=== PATIENT | female | born 1985 | race Caucasian/White ===

== ENCOUNTER 2018-07-27 10:52 | Outpatient (CLI) | payer BC, SELFPAY ==
[2018-07-27 13:09] LABS: TSH (W/Ref FT4) 2.66 uIU/mL (0.358-3.74)
== END 2018-07-27 11:12 ==
LOC: LBO 10:52 → LOS 11:23
PROVIDERS: PCP Family Medicine; Visit Provider Family Medicine
DX: E03.9 Hypothyroidism, unspecified (principal)
CPT/HCPCS: 36415; 84443

== ENCOUNTER 2018-09-01 10:14 | Outpatient (REF) | payer BC, SELFPAY ==
--- NOTE | 2018-09-01 08:45 | PAPFT_PTH ---
PATIENT: Sheyla Haynes LOC: [facility] U#:[id number] AGE/SX: 33/F ROOM: RE09/01/[address]: Carito Hartmann MD, DC : 1985 BED: DIS: 09/01/2018 SPEC #: [id number] RECD: 09/01/18 13:06 STATUS: ERIC REQ #: [id number] DALI: 09/01/18 08:[address]: Carito Hartmann DEPT: [facility] Cytology RECD BY: Lynne Mcdowell Tissues: 1 - CX/ENDOCX FOR PAP SMEARS Procedures: PAP THIN PREP/UVM Screening HPV DNA PROBE Comments: [id number] (CHLAMYDIA/GC)
[2018-09-02 18:06] LABS: Chlamydia Result Negative; GC Result Negative; Specimen Description SEE COMMENTS
== END 2018-09-01 10:34 ==
LOC: LBN 10:14
PROVIDERS: PCP Family Medicine; Visit Provider Family Medicine
DX: Z11.3 Encounter for screening for infections with a predominantly sexual mode of transmission (principal); Z12.4 Encounter for screening for malignant neoplasm of cervix; Z11.51 Encounter for screening for human papillomavirus (HPV)
CPT/HCPCS: 87491; 87591; 88142; 87624

== ENCOUNTER 2018-09-25 01:22 | Outpatient (CLI) | payer BC, SELFPAY ==
--- NOTE | 2018-09-25 12:30 | DI.US_ITS ---
SYMPTOMS/DIAGNOSIS: MASS RT LATERAL NECK, R22.1, LYMPH NODE ENLARGEMENT, R59.9 , HPV, HYPOTHYROIDISM, E03.9 THYROID ULTRASOUND: Routine examination was performed. The right lobe measures 3.8 x 0.9 x 1.4 cm. The left lobe measures 3.9 x 1 x 1.3 cm. The isthmus is within normal limits. There is no evidence of a thyroid mass. There is normal and symmetric blood flow to the thyroid gland. IMPRESSION: Negative thyroid ultrasound. ULTRASOUND OF THE NECK: Sonographic evaluation of the right neck was performed. There are bilateral hypoechoic nodules in the left. The largest measures 1.5 x 0.7 1.2 cm and is in the right mid neck. This appears to correspond to the palpable abnormality. Several of the nodules show a hyperechoic eccentric vascular area. These findings are consistent with benign appearing lymph node. No suspicious masses are seen in the neck. IMPRESSION: Bilateral cervical lymph nodes. The largest measures 1.5 x 0.7 x 1.2 cm and appears to correspond sonographically with the palpable abnormality. If there is continued concern, a CT scan of the neck with contrast may be considered for further evaluation.
== END 2018-09-25 01:42 ==
PROVIDERS: PCP Family Medicine; Visit Provider Otolaryngology Otolaryngology/Facial Plastic Surgery
DX: R22.1 Localized swelling, mass and lump, neck (principal); R59.0 Localized enlarged lymph nodes; E03.9 Hypothyroidism, unspecified
CPT/HCPCS: 76536

== ENCOUNTER 2018-10-22 01:31 | Outpatient (CLI) | payer BC, SELFPAY ==
--- NOTE | 2018-10-22 08:56 | DI.CT_ITS ---
SYMPTOM/DIAGNOSIS: NECK MASS, R22.1, LYMPH NODE ENLARGEMENT, R59.9, HPV, HYPOTHYROIDISM, R03.[address]: Comparison is made with neck ultrasound dated 09/25/18. Post contrast exam was performed. A BB marker was placed over the area of the palpable abnormality which overlies the lower sternocleidomastoid muscle. No abnormality is seen beneath the area marked. There are small lymph nodes seen in the posterior cervical chain, the largest measuring 11 mm. in greatest dimension. Other scattered smaller lymph nodes are seen. No pathologically enlarged lymph nodes are identified. The parotid, submandibular and thyroid glands are unremarkable. The visualized portions of the upper lobes appear clear. No vascular abnormalities are identified. There are mild degenerative disc changes at C 6-7. The orbits, sinuses and mastoid air cells are unremarkable. IMPRESSION: Small bilateral cervical lymph nodes, the largest in the lower right posterior cervical chain measuring 11 mm.
[2018-10-22] MEDS: Omnipaque 350 MG/ML 100 ML BTL IV (08:58)
== END 2018-10-22 01:51 ==
PROVIDERS: PCP Family Medicine; Visit Provider Otolaryngology Otolaryngology/Facial Plastic Surgery
DX: R22.1 Localized swelling, mass and lump, neck (principal); R59.0 Localized enlarged lymph nodes; E03.9 Hypothyroidism, unspecified
CPT/HCPCS: 70491; J3490

== ENCOUNTER 2018-10-26 07:19 | Day surgery (SDC) | payer BC, SELFPAY ==
[2018-10-26] VITALS (9 sets, daily range): BP systolic 89–138; BP diastolic 43–82; PULSE 59–80; RESP 15–22; TEMP 36.5–37.7; O2SAT 96–100
[2018-10-26] MEDS: Lactated Ringers 1,000 ML 80 ML IV (08:25)
--- NOTE | 2018-10-26 08:56 | PDOC.DSDIS_ITS ---
Discharge Plan Disposition Patient Disposition: HOME Condition: Good Discharge Details Reason For Visit: OR, MSDL supraglottic mass, HPV Attending Provider: Ernesto Roy Primary Care Provider: Carito Hartmann Home Meds and New Rx's Prescriptions: No Action norethindrone-ethin estradiol [Alyacen (28)] 1-35 mg-mcg tablet 1 tab PO DAILY Qty: 84 RF: 4 norethindrone-e.estradiol-iron [Junel FE 12/06 (28)] 1 mg-20 mcg (21)/75 mg (7 ) tablet 1 tab PO HS RF: 0 levothyroxine 125 mcg capsule 125 mcg PO DAILY RF: 0 multivitamin Capsule 1 cap PO QAM RF: 0 ibuprofen 600 mg Tablet 600 mg PO PRNRF: 0 Discharge Instructions Additional Instructions: see sheet Activity:: Activity as Tolerated Diet:: As Tolerated Discharge Orders Discharge Orders: Discharge Order (Routine); Ordered 10/26/18 Ordered By: Ernesto Roy
--- NOTE | 2018-10-26 09:46 | LAR_PTH ---
PATIENT: Sheyla Haynes LOC: [facility] U#:[id number] AGE/SX: 33/F ROOM: RE10/26/[address]: Ernesto Roy DO : 1985 BED: DIS: 10/26/2018 SPEC #: [id number] RECD: 10/26/18 12:24 STATUS: ERIC REQ #: [id number] DALI: 10/26/18 09:[address]: Ernesto Roy DEPT: Surgical Specimen RECD BY: Lynne Mcdowell ENTERED: 10/26/18 12:27 SP TYPE: ROCK LEAVITT DR: Carito Hartmann MD, DC Tissues: 1 - LARYNX BIOPSY Procedures: GROSS AND MICRO LEVEL 4 Comments: [id number]
--- NOTE | 2018-10-26 11:48 | ROE_ITS ---
DATE OF PROCEDURE: October 26, 2018 PREOPERATIVE DIAGNOSIS: 1. Midline supraglottic mass. 2. History of HPV. 3. History of neck lymphadenopathy bilaterally. POSTOPERATIVE DIAGNOSIS: Same. PROCEDURE: Microsuspension direct laryngoscopy with excision of mass midline supraglottis within the vallecula, indicative of papillomatous-type lesion. SURGEON: Ernesto Roy D.O. ANESTHESIA: General. ESTIMATED BLOOD LOSS: Less than 1 cc COMPLICATIONS: None. CONDITION: Patient tolerated the procedure well. SPECIMENS: Vallecular supraglottic midline papillomatous-type lesion sent to pathology for analysis. INDICATIONS FOR PROCEDURE: This is a pleasant 33-year-old female who presents with a history of HPV. She presents with intermittent neck lymphadenopathy, undergone FNA ultrasound of the neck. Decisio n was made forth to proceed with direct laryngoscopy and mass excision with subtyping for HPV if appr opriate. HPV poses a significant oropharyngeal carcinoma risk. We had these discussions preoperativ valerie. She wishes to proceed. Consent was placed in the chart. PROCEDURE: The patient was brought back to the operative suite in stable condition, placed supine on the operating table and intubated in a normal fashion. The table was rotated 90 degrees. A dental guard was used to cover and protect the upper dentition. The Dedo laryngoscope was placed into the r ight oral commissure to the level of the true vocal cords, which were normal in nature. The remainin g portion of the DL was normal. The epiglottis was normal. It was suspended then in the vallecula t o identify the papillomatous-type lesions. The operative microscope was used to visualize the surgic al field. We used a left-cutting scissors and a straight grasper to excise the papillomatous-type le sions. Hemostasis was controlled with topical epinephrine 1:1000. The remaining portion of the leslie ngoscopy was within normal limits. There were no complications. She was stable to PACU.
== END 2018-10-26 12:10 | disposition home or self-care (01) ==
PROVIDERS: PCP Family Medicine; Visit Provider Otolaryngology Otolaryngology/Facial Plastic Surgery
PROC: 0CJS8ZZ Inspection of Larynx, Via Natural or Artificial Opening Endoscopic (ICD-10-PCS; CPT 31541; principal; 2018-10-26 08:30)
DX: D14.1 Benign neoplasm of larynx (principal); Z87.42 Personal history of other diseases of the female genital tract; R59.0 Localized enlarged lymph nodes
CPT/HCPCS: 31541; 81025; 88305; J0131; J0171; J0690; J1100; J2250; J2405; J3010

== ENCOUNTER 2019-07-02 18:58 | Outpatient (REF) | payer BC, SELFPAY | END 2019-07-02 19:18 | LOC: LBN 18:58 | PROVIDERS: PCP Family Medicine; Visit Provider Nurse Practitioner | DX: N39.0 Urinary tract infection, site not specified (principal) | CPT/HCPCS: 87086 ==

== ENCOUNTER 2019-07-06 17:18 | Outpatient (REF) | payer BC, SELFPAY | END 2019-07-06 17:38 | LOC: LBN 17:18 | PROVIDERS: PCP Family Medicine; Visit Provider Family Medicine | DX: N76.0 Acute vaginitis (principal) | CPT/HCPCS: 87480; 87510; 87660 ==

== ENCOUNTER 2019-09-02 08:47 | Outpatient (CLI) | payer BC, SELFPAY ==
[2019-09-03 10:36] LABS: Hepatitis C Ab w Rflx HCV PCR Negative (NEGAT)
[2019-09-03 10:38] LABS: HIV-1/2 Ag & Ab Screen Negative (NEGAT)
== END 2019-09-02 09:07 ==
PROVIDERS: PCP Family Medicine; Visit Provider Family Medicine
DX: Z00.00 Encounter for general adult medical examination without abnormal findings (principal); E03.9 Hypothyroidism, unspecified; Z11.4 Encounter for screening for human immunodeficiency virus [HIV]; Z11.59 Encounter for screening for other viral diseases
CPT/HCPCS: 36415; 86803; 87389; 84443

== ENCOUNTER 2019-09-02 08:58 | Outpatient (REF) | payer BC, SELFPAY ==
--- NOTE | 2019-09-02 08:30 | PAPFT_PTH ---
PATIENT: Sheyla Haynes LOC: [facility] U#:[id number] AGE/SX: 34/F ROOM: RE09/02/[address]: Carito Hartmann MD, DC : 1985 BED: DIS: 09/02/2019 SPEC #: [id number] RECD: 09/02/19 12:45 STATUS: ERIC REQ #: [id number] DALI: 09/02/19 08:[address]: Carito Hartmann DEPT: [facility] Cytology RECD BY: Lynne Mcdowell Tissues: 1 - CX/ENDOCX FOR PAP SMEARS Procedures: PAP THIN PREP/UVM Screening HPV DNA PROBE Comments: [id number] (CHLAMYDIA/GC)
[2019-09-03 15:45] LABS: Chlamydia Result Negative; GC Result Negative; Specimen Description SEE COMMENTS
== END 2019-09-02 09:18 ==
LOC: LBN 08:58
PROVIDERS: PCP Family Medicine; Visit Provider Family Medicine
DX: Z12.4 Encounter for screening for malignant neoplasm of cervix (principal); Z11.51 Encounter for screening for human papillomavirus (HPV); Z11.3 Encounter for screening for infections with a predominantly sexual mode of transmission
CPT/HCPCS: 87491; 87591; 88142; 87624

== ENCOUNTER 2019-10-18 12:51 | Outpatient (REF) | payer BC, SELFPAY ==
--- NOTE | 2019-10-18 11:07 | SKI_PTH ---
PATIENT: Sheyla Haynes LOC: [facility] U#:[id number] AGE/SX: 34/F ROOM: RE10/18/[address]: Ernesto Roy DO : 1985 BED: DIS: 10/18/2019 SPEC #: [id number] RECD: 10/18/19 18:31 STATUS: ERIC REQ #: [id number] DALI: 10/18/19 11:[address]: Ernesto Roy DEPT: Surgical Specimen RECD BY: Lynne Mcdowell ENTERED: 10/18/19 18:31 SP TYPE: SKI OT DR: Carito Hartmann MD, DC Tissues: 1 - SKIN BIOPSY(SHAVE/PUNCH) Procedures: SKIN LEVEL 4 Comments: [id number]
== END 2019-10-18 13:11 ==
LOC: LBN 12:51
PROVIDERS: PCP Family Medicine; Visit Provider Otolaryngology Otolaryngology/Facial Plastic Surgery
DX: L98.8 Other specified disorders of the skin and subcutaneous tissue (principal)
CPT/HCPCS: 88305

== ENCOUNTER 2020-05-31 09:59 | Outpatient (CLI) | payer BC, SELFPAY ==
--- NOTE | 2020-05-31 09:30 | DI.RAD_ITS ---
EXAM: XR FOOT LT COMPLETE CLINICAL HISTORY: left foot pain TECHNIQUE: COMPARISON: No exams were available for comparison FINDINGS: Three views were obtained. Bony alignment appears within normal limits. There is an osteophyte at t he site of attachment of the plantar fascia on the calcaneus. No other bony or soft tissue abnormali ty seen. IMPRESSION:
--- NOTE | 2020-05-31 09:42 | DI.RAD_ITS ---
EXAM: XR KNEE RT 3V AP,LAT,SWETHA CLINICAL HISTORY: right knee pain TECHNIQUE: COMPARISON: No exams were available for comparison FINDINGS: Three views were obtained. No bony or soft tissue abnormality seen. IMPRESSION: Negative examination of the knee.
== END 2020-05-31 10:19 ==
PROVIDERS: PCP Family Medicine; Referring Provider Family Medicine; Visit Provider Student in an Organized Health Care Education/Training Program
DX: M25.561 Pain in right knee (principal); M79.672 Pain in left foot; M25.772 Osteophyte, left ankle
CPT/HCPCS: 73562; 73630

== ENCOUNTER 2020-07-19 21:27 | Outpatient (REF) | payer BC, SELFPAY ==
[2020-07-21 15:58] LABS: Chlamydia Result Negative (Negative); GC Result Negative (Negative)
== END 2020-07-19 21:47 ==
LOC: LBN 21:27
PROVIDERS: PCP Family Medicine; Visit Provider Obstetrics & Gynecology
DX: N76.0 Acute vaginitis (principal)
CPT/HCPCS: 87491; 87591; 87480; 87510; 87660

== ENCOUNTER 2020-09-12 11:20 | Outpatient (REF) | payer BC, SELFPAY | END 2020-09-12 11:40 | LOC: LBN 11:20 | PROVIDERS: PCP Family Medicine; Visit Provider Family Medicine | DX: N76.0 Acute vaginitis (principal) | CPT/HCPCS: 87480; 87510; 87660 ==

== ENCOUNTER 2020-10-13 03:15 | Outpatient (CLI) | payer BC, SELFPAY ==
[2020-10-15 22:32] LABS: Patient Race White; SARS-CoV-2 RNA Undetected (Undetected); SARS-CoV-2 Specimen Source Nasal
== END 2020-10-13 03:35 ==
PROVIDERS: PCP Family Medicine; Visit Provider Family Medicine
DX: R05 Cough (principal)
CPT/HCPCS: U0003

== ENCOUNTER 2021-01-19 03:43 | Outpatient (CLI) | payer OTHER, SELFPAY ==
[2021-01-20 14:36] LABS: COVID-19 RT-PCR UVMMC Result Positive (Negative)
== END 2021-01-19 03:44 | disposition home or self-care (01) ==
LOC: LBO 03:43
PROVIDERS: PCP Family Medicine; Visit Provider Family Medicine
DX: Z20.822 Contact with and (suspected) exposure to COVID-19 (principal)
CPT/HCPCS: U0003

== ENCOUNTER 2021-10-12 00:30 | Outpatient (CLI) | payer OTHER, SELFPAY ==
--- NOTE | 2021-10-12 13:09 | DI.RAD_ITS ---
Exam(s) XR KNEE RT 3V AP,LAT,SWETHA EXAM: XR KNEE RT 3V AP,LAT,WSETHA CLINICAL HISTORY: r knee pain,m25.561. TECHNIQUE: 2D digital imaging was performed. COMPARISON: CR XR KNEE RT 3V AP,LAT,SWETHA from 05/31/2020 FINDINGS: BONES: No acute fracture is present. No bony destructive lesion is seen. Minimal enthesophyte superi or pole of the patella. JOINTS: Joint spaces are well maintained.. No joint effusion is seen. SOFT TISSUE: Normal. IMPRESSION: Minimal degenerative changes. DATA REPOSITORY: RADIATION DOSE DELIVERED:
== END 2021-10-12 00:50 ==
PROVIDERS: PCP Family Medicine; Visit Provider Family Medicine
DX: M25.561 Pain in right knee (principal)
CPT/HCPCS: 73562

== ENCOUNTER 2021-10-26 01:25 | Outpatient (CLI) | payer OTHER, SELFPAY ==
[2021-10-26 15:46] LABS: HCT 43.9 % (36.0-46.0); HGB 14.2 g/dL (11.2-15.7); MCH 27.6 pg (27.0-33.0); MCHC 32.3 % (32.0-36.0); MCV 85.4 fL (80-95); MPV 9.9 fL (8.0-11.0); Platelet Count 318 10^3/uL (130-400); RBC 5.14 10^6/uL (3.93-5.22); RDW 11.8 % (11.7-14.6); RDW-SD 36.5 fL; WBC 10.97 10^3/uL (4.4-10.8)
[2021-10-26 16:47] LABS: TSH (W/Ref FT4) 0.54 uIU/mL (0.36-3.74)
[2021-10-26 16:57] LABS: Iron 51 ug/dL (50-170)
== END 2021-10-26 01:26 | disposition home or self-care (01) ==
LOC: LBO 01:25
PROVIDERS: PCP Family Medicine; Visit Provider Family Medicine
DX: E03.9 Hypothyroidism, unspecified (principal); N93.8 Other specified abnormal uterine and vaginal bleeding
CPT/HCPCS: 36415; 85027; 83540; 84443

== ENCOUNTER 2022-01-03 00:55 | Outpatient (CLI) | payer OTHER, SELFPAY ==
--- NOTE | 2022-01-03 | DI.MRI_ITS ---
Exam(s) MR LOWER JOINT RT WO EXAM: MR LOWER JOINT RT WO CLINICAL HISTORY: CHRONIC RT KNEE PAIN M25.561 G89.29. TECHNIQUE: Multiplanar multisequence MRI was performed. COMPARISON: CR XR KNEE RT 3V AP,LAT,SWETHA from 10/12/2021 FINDINGS: BONES: There is no fracture or contusion pattern. JOINTS: Articular cartilage is unremarkable. No effusion is present. TENDONS: Extensor mechanism: Unremarkable. Medial retinaculum: Unremarkable. Lateral retinaculum: Unremarkable. Popliteus: Unremarkable. MUSCLES: Unremarkable. MENISCI: The medial meniscus is unremarkable. The lateral meniscus is unremarkable. SOFT TISSUES: There is mild edema in the soft tissues medial to the medial femoral condyle. No focal fluid collection is seen. LIGAMENTS: Anterior Cruciate: Unremarkable. Posterior Cruciate: Unremarkable. Medial Collateral:Unremarkable. Lateral Collateral: Unremarkable. OTHER: IMPRESSION: No evidence of a meniscal or ligament tear. No acute abnormality. DATA REPOSITORY:
== END 2022-01-03 01:15 ==
PROVIDERS: PCP Family Medicine; Visit Provider Student in an Organized Health Care Education/Training Program
DX: M25.561 Pain in right knee (principal); G89.29 Other chronic pain; R60.0 Localized edema
CPT/HCPCS: 73721

== ENCOUNTER 2022-02-08 03:18 | Outpatient (CLI) | payer OTHER, SELFPAY ==
[2022-02-08 11:44] LABS: Source Nasal/Nares
[2022-02-08 14:14] LABS: COVID-19 PCR Negative (Negative)
== END 2022-02-08 03:19 | disposition home or self-care (01) ==
PROVIDERS: PCP Family Medicine; Visit Provider Student in an Organized Health Care Education/Training Program
DX: Z20.822 Contact with and (suspected) exposure to COVID-19 (principal)
CPT/HCPCS: 87635

== ENCOUNTER 2022-09-25 03:37 | Outpatient (CLI) | payer OTHER, SELFPAY ==
[2022-09-25 08:18] LABS: ALT 19 U/L (14-59); AST 16 U/L (15-37); Albumin 3.8 g/dL (3.4-5.0); Alkaline Phosphatase 68 U/L (46-116); Anion Gap 6.7 mmol/L (3-11); BUN 15 mg/dL (7-18); Bilirubin, Total 0.4 mg/dL (0.2-1.0); CO2 28.3 mmol/L (21.0-32.0); CREATININE 0.9 mg/dL (0.55-1.02); Calcium 9.4 mg/dL (8.5-10.1); Chloride 104 mmol/L (98-107); Glucose 85 mg/dL (74-106); Potassium 4.2 mmol/L (3.5-5.1); Sodium 139 mmol/L (136-145); TSH (W/Ref FT4) 1.63 uIU/mL (0.36-3.74); Total Protein 7.6 g/dL (6.4-8.2)
== END 2022-09-25 03:38 | disposition home or self-care (01) ==
PROVIDERS: PCP Family Medicine; Visit Provider Family Medicine
DX: E03.9 Hypothyroidism, unspecified (principal); R74.01 Elevation of levels of liver transaminase levels
CPT/HCPCS: 36415; 80053; 84443

== ENCOUNTER 2022-10-14 12:26 | Outpatient (REF) | payer OTHER, SELFPAY ==
--- NOTE | 2022-10-14 10:25 | PAPFT_PTH ---
PATIENT: Sheyla Haynes LOC: [facility]#:[id number] AGE/SX: 37/F ROOM: RE10/14/[address]: Carito Hartmann MD, DC : 1985 BED: DIS: 10/14/2022 SPEC #: [id number] RECD: 10/15/22 12:16 STATUS: ERIC REAntonio #: [id number] DALI: 10/14/22 10:[address]: Carito Hartmann DEPT: [facility] Cytology RECD BY: Aria Somers Tissues: 1 - CX/ENDOCX FOR PAP SMEARS Procedures: PAP THIN PREP/UVM Screening HPV DNA PROBE Comments: [id number] (CHLAMYDIA/GC)
[2022-10-16 15:01] LABS: Chlamydia Result Negative (Negative); GC Result Negative (Negative)
== END 2022-10-14 12:27 | disposition home or self-care (01) ==
LOC: LBN 12:26
PROVIDERS: PCP Family Medicine; Visit Provider Family Medicine
DX: Z11.3 Encounter for screening for infections with a predominantly sexual mode of transmission (principal); Z12.4 Encounter for screening for malignant neoplasm of cervix; Z11.51 Encounter for screening for human papillomavirus (HPV)
CPT/HCPCS: 87491; 87591; 88142; 87624

== ENCOUNTER 2023-02-14 11:29 | Outpatient (REF) | payer OTHER, SELFPAY | END 2023-02-14 11:30 | disposition home or self-care (01) | LOC: NCHCN 11:29 | PROVIDERS: PCP Family Medicine; Visit Provider Nurse Practitioner Family | DX: N76.0 Acute vaginitis (principal); J02.9 Acute pharyngitis, unspecified | CPT/HCPCS: 87070; 87480; 87510; 87660 ==

== ENCOUNTER 2023-03-28 17:29 | Outpatient (REF) | payer OTHER, SELFPAY ==
[2023-03-29 20:42] LABS: Chlamydia Result Negative (Negative); GC Result Negative (Negative)
== END 2023-03-28 17:30 | disposition home or self-care (01) ==
LOC: LBN 17:29
PROVIDERS: PCP Family Medicine; Visit Provider Advanced Practice Midwife
DX: N89.8 Other specified noninflammatory disorders of vagina (principal)
CPT/HCPCS: 87491; 87591

== ENCOUNTER 2023-07-08 16:29 | Outpatient (CLI) | payer OTHER, SELFPAY ==
[2023-07-08 16:10] LABS: TSH 0.94 uIU/mL (0.36-3.74)
[2023-07-08 16:29] LABS: FREE T4 1.13 ng/dL (0.76-1.46)
[2023-07-09 19:22] LABS: T3, Total 143 ng/dL (97-169)
[2023-07-09 21:06] LABS: Parathyroid Hormone,Intact 44 pg/mL (19-88)
[2023-07-16 14:49] LABS: Test Name T3 Uptake
== END 2023-07-08 16:30 | disposition home or self-care (01) ==
LOC: LBO 16:30
PROVIDERS: PCP Family Medicine; Visit Provider Optometrist
DX: H05.20 Unspecified exophthalmos (principal); E05.90 Thyrotoxicosis, unspecified without thyrotoxic crisis or storm
CPT/HCPCS: 36415; 84479; 83970; 84436; 84439; 84443; 84480

== ENCOUNTER 2023-09-22 16:05 | Outpatient (REF) | payer OTHER, SELFPAY | END 2023-09-22 16:06 | disposition home or self-care (01) | LOC: LBN 16:05 | PROVIDERS: PCP Family Medicine; Visit Provider Nurse Practitioner Family | DX: N76.0 Acute vaginitis (principal) | CPT/HCPCS: 87480; 87510; 87660 ==

== ENCOUNTER 2023-11-03 11:31 | Outpatient (CLI) | payer OTHER, SELFPAY ==
[2023-11-03 13:05] LABS: ALT 42 U/L (14-59); AST 27 U/L (15-37); Albumin 3.4 g/dL (3.4-5.0); Alkaline Phosphatase 73 U/L (46-116); Anion Gap 8.8 mmol/L (3-11); BUN 16 mg/dL (7-18); Bilirubin, Total 0.3 mg/dL (0.2-1.0); CO2 25.2 mmol/L (21.0-32.0); CREATININE 0.8 mg/dL (0.55-1.02); Calcium 9.2 mg/dL (8.5-10.1); Chloride 105 mmol/L (98-107); Estimated GFR 97.87 (mL/min/1.73m2); Glucose 111 mg/dL (74-106); Potassium 3.9 mmol/L (3.5-5.1); Sodium 139 mmol/L (136-145); Total Protein 7.2 g/dL (6.4-8.2)
== END 2023-11-03 11:32 | disposition home or self-care (01) ==
LOC: LOS 11:31
PROVIDERS: PCP Family Medicine; Referring Provider Family Medicine; Visit Provider Family Medicine
DX: Z00.00 Encounter for general adult medical examination without abnormal findings (principal); E03.9 Hypothyroidism, unspecified; R74.01 Elevation of levels of liver transaminase levels
CPT/HCPCS: 36415; 80053

== ENCOUNTER 2024-10-04 18:52 | Outpatient (REF) | payer OTHER, SELFPAY ==
[2024-10-06 11:52] LABS: Chlamydia Result Negative (Negative); GC Result Negative (Negative)
== END 2024-10-04 18:53 | disposition home or self-care (01) ==
LOC: LBN 18:52
PROVIDERS: PCP Family Medicine; Visit Provider Nurse Practitioner Women's Health
DX: Z11.3 Encounter for screening for infections with a predominantly sexual mode of transmission (principal); N76.0 Acute vaginitis
CPT/HCPCS: 87491; 87591; 87480; 87510; 87660

== ENCOUNTER 2025-04-26 02:24 | Outpatient (CLI) | payer OTHER, SELFPAY ==
[2025-04-26 14:50] LABS: TSH (W/Ref FT4) 0.48 uIU/mL (0.36-3.74)
== END 2025-04-26 02:25 | disposition home or self-care (01) ==
LOC: LBO 02:25
PROVIDERS: PCP Family Medicine; Visit Provider Family Medicine
DX: E03.9 Hypothyroidism, unspecified (principal)
CPT/HCPCS: 36415; 84443

== ENCOUNTER 2025-07-05 16:50 | Outpatient (REF) | payer OTHER, SELFPAY | END 2025-07-05 16:51 | disposition home or self-care (01) | LOC: LBN 16:50 | PROVIDERS: PCP Family Medicine; Visit Provider Physician Assistant Medical | DX: J02.9 Acute pharyngitis, unspecified (principal) | CPT/HCPCS: 87070 ==

== ENCOUNTER → 2025-10-06 05:48 | Outpatient (CLI) | payer OTHER, SELFPAY ==
--- NOTE | 2025-10-06 08:00 | DI.RAD_ITS ---
Exam(s) RF MODIFIED SPEECH BA SWALLOW EXAM: RF MODIFIED SPEECH BA SWALLOW CLINICAL HISTORY: dysphagia, solids, GLOBUS SENSATION, R09.89 R13.10 TECHNIQUE: Modified barium swallow was performed in conjunction with speech pathology. CONTRAST MATERIAL: Multiple consistencies of oral barium contrast were administered. COMPARISON: No exams were available for comparison FINDINGS: Note that this is not a dedicated esophagram, distal esophagus not evaluated. There is no evidence of aspiration or penetration with any consistency. Speech pathology report to follow. IMPRESSION: No evidence of aspiration or penetration. RADIATION DOSE DELIVERED: yenny Davis=3.55 mGy
--- NOTE | 2025-10-06 09:17 | ST.MBS_ITS ---
Date of Service Date of service: 10/06/25 Time of Service: 10:45 Modified Barium Swallow Study Findings: Video fluoroscopic Swallowing Evaluation (VFSE) / Modified Barium Swallow Study (MBSS) Speech Language Pathology Report Patient referred for VFSE/MBSS from Lauren Jiménezow given dysphagia. HPI & Patient report of function: Hilda is a 40 yo female who was seen by this clinician for a non-instrumental swallow evaluation in July and MBSS was recommended. Per that evaluation- symptoms began this past summer when a piece of steak became stuck in her lower throat. Since this time, this has occurred at least weekly with meat (pork, steak) as well as cheese, nuts, dried cranberries. She denies reflux or heartburn, post nasal drip, xerostomia, or change in vocal quality and has been mindful of chewing well. In more minor instances this will clear with sips of liquid and time, but in a couple instances she had to self induce gagging/vomiting to expectorate. The solid piece of meat was expectorated in these instances. Pertinent medical history is largely unremarkable. She reports having a growth removed from her throat by Dr Roy years ago ([id number]) but this was at [facility] and notes are unavailable. It was not malignant and did not require further workup. Nasolaryngoscopy was performed 08/08/25 and found to be WNL. Symptoms are largely unchanged over the past 2 months- still with food sticking though has not had episodes of requiring self-induced vomiting or gagging to expectorate. States she is extremely mindful of small bites and chewing. Previous Imaging: Nasolaryngoscopy unremarkable IMPRESSIONS: Oral pharyngeal swallow function is well within normal limits. There is no evidence of motoric or sensory dysphagia or anatomical abnormality. No evidence of Zenker's, no evidence of aspiration or pharyngeal retention. Education provided to patient regarding findings with review of film. While we were unable to recreate Hilda's symptoms during the study today, education provided re: rule out of neurological, anatomical, or physiological dysphagia. Symptoms may possibly be consistent with muscle tension dysphagia (MTDg). Hilda was provided exercises to support this including circumlaryngeal massage and head/neck stretches. She was encouraged to complete these stretches daily, espec ially before meals, and monitor if symptoms improve. If symptoms persist and Hilda is interested in further workup, GI referral may be beneficial with consideration of endoscopy vs kendall study. Specialist referrals: N/A RECOMMENDATIONS: Diet Texture Recommendation: IDDSI LEVEL SOLIDS 7-Regular Solids. Cut food small, chew until applesauce consistency, use extra sauces/condiments. LIQUIDS 0-Thin Liquids MEDICATIONS As tolerated Diet texture modification is per patient's preference; please adjust diet textures at patient's discretion & collaboration with care team. Do not alter medications (e.g., cut) without advice from your MD or pharmacist. Risk Management Strategies: Small bites, approx 65wty33mc Small sips, approx 10 mL Chew food until applesauce consistency Always be upright for meals and at least 60 minutes after meals PLAN: Evaluation only OBJECTIVE Videofluoroscopic Swallow Evaluation (VFSE/MBSS) was conducted in the lateral[ and [id number]] projection by Speech-Language Pathologist, in collaboration with Radiologist, to evaluate oropharyngeal swallow function. Oral-Motor/Peripheral Screening: WNL/Unremarkable dentition, oral mucosa, and CN/airway function Anatomic view under fluoroscopy: WNL PO Barium Contrast Trials Oral barium water-soluble contrast was administered as follows: IDDSI Level 0 Varibar thin liquid (40% w/v) IDDSI Level 2 Varibar nectar thick/mildly thick liquid (40% w/v) IDDSI Level 4 Varibar pudding/pureed/extremely thick (40% w/v) IDDSI Level 7 Regular Solid: 1/2 rehana cracker coated in 3 mL Varibar pudding [place] Pharyngeal Residue Severity Rating Scale (YPRS) (Benigno et al, 2015) Vallecula Residue Severity I None 0% No residue Pyriform Sinus Residue Severity I None 0% No residue MBSImP Component Scores: COMPONENT Scale SCORE 1 Lip closure (0-4) 0 Resulted in no labial escape 2 Hold Position (0-3) 0 Maintained a cohesive bolus between tongue to palatal seal 3 Bolus Preparation (0-4) 0 Resulted in timely and efficient chewing and mashi ng 4 Bolus Transport (0-4) 0 Was with brisk tongue motion 5 Oral Residue (0-4) 0 Was not observed. There was complete oral clearance 6 Swallow Initiation (0-4) 1 Bolus head in vallecular 7 Soft Palate Elevation (0-4) 0 Resulted in no bolus between soft palate and t he pharyngeal wall 8 Laryngeal Elevation (0-3) 0 Complete superior movement of thyroid cartilage with complete approximation of arytenoids to epiglottic petiole 9 Anterior Hyoid Motion (0-2) 0 Demonstrated complete anterior movement 10 Epiglottic Movement (0-2) 0 Resulted in complete inversion 11 Laryngeal Closure (0-2) 0 Was complete with no air or contrast in laryngeal vestibule 12 Pharyngeal Stripping Wave (0-2) 0 Was present and complete 13 Pharyngeal Contraction (0-3) 0 Was complete 14 PES Opening (0-3) 0 Was completely distended and complete duration with no ob struction of flow 15 Tongue Base Retraction (0-4) 0 No column of contrast between tongue base an d posterior pharyngeal wall 16 Pharyngeal Residue (0-4) 0 Complete pharyngeal clearance 17 Esophageal Clearance (0-4) 0 Was complete, with only a coating of contrast, if any Results: COMPONENT Scale SCORE 1 Oral Score (0-18) 1 2 Pharyngeal Score (0-29) 0 3 Esophageal Score (0-4) 0 Penetration-Aspiration Scale: COMPONENT Scale SCORE 1 Thin liquid (1-8) 1 Contrast did not enter the airway 2 [place] thick (1-8) 1 Contrast did not enter the airway 3 Honey thick (1-8) NA 4 Pudding thick (1-8) 1 Contrast did not enter the airway 5 Cookie (1-8) 1 Contrast did not enter the airway Thank you for allowing us to take part in this patient's care. Please feel free to contact the [facility] Speech Language Pathology Department with any questions/concerns.
[2025-10-06] MEDS: Barium Sulfate 40% W/V 240 ML BTL PO (11:34)
[2025-10-06] MEDS: Barium Sulfate 81% w/w for Oral Suspension 148 GM BTL PO (11:38)
[2025-10-06] MEDS: Barium Sulfate Oral Paste 40% W/V 230 ML TUBE PO (11:39)
== END ==
LOC: DI 05:48
PROVIDERS: PCP Family Medicine; Visit Provider Registered Nurse Maternal Newborn
DX: R09.89 Other specified symptoms and signs involving the circulatory and respiratory systems (principal); R13.10 Dysphagia, unspecified
CPT/HCPCS: 92526; 74221